=== PATIENT | female | born 1970 | race Caucasian/White ===

== ENCOUNTER 2019-04-27 15:00 | Outpatient (CLI) | payer BC, SELFPAY ==
--- NOTE | 2019-04-27 15:10 | USCV_ITS ---
Marilyn Nayak Age: 48 Gender: F : 1970 Exam Date: 04/27/2019 15:48 Ordering Phys: Peg Mcfadden MD Technologist: Donna Lindquist [place] [facility] [place]: CHEST PAIN BP: / HR: 71 Rhythm: Sinus Technical Quality: TDS MEASUREMENTS (Male / Female) Normal Values 2D ECHO LV Diastolic Diameter PLAX 4.0 cm 4.2 - 5.9 / 3.9 - 5.3 cm LV Systolic Diameter PLAX 2.9 cm LV Chamber Size 3.9 cm IVS Diastolic Thickness 1.1 cm 0.6 - 1.0 / 0.6 - 0.9 cm IVS Systolic Thickness 1.4 cm LVPW Diastolic Thickness 1.2 cm 0.6 - 1.0 / 0.6 - 0.9 cm LVPW Systolic Thickness 1.4 cm RV Chamber Size 2.6 cm LVOT Diameter 2.0 cm LV Ejection Fraction 2D Teich 55.8 % LV Ejection Fraction MOD 2C 44.7 % LV Ejection Fraction 2C AL 45.8 % LA Diameter 2.4 cm LA Width 2.3 cm LA Height 2.8 cm RA Width 2.8 cm RA Height 3.3 cm Aorta at Sinotubular Diameter 3.3 cm M-MODE LV Diastolic Diameter MM 4.4 cm 4.2 - 5.9 / 3.9 - 5.3 cm LV Systolic Diameter MM 3.5 cm LV Ejection Fraction MM Teich 43.9 % IVS Diastolic Thickness MM 0.8 cm 0.6 - 1.0 / 0.6 - 0.9 cm IVS Systolic Thickness MM 1.1 cm LVPW Diastolic Thickness MM 1.0 cm 0.6 - 1.0 / 0.6 - 0.9 cm LVPW Systolic Thickness MM 1.3 cm RV Diastolic Diameter MM 2.0 cm Aortic Annulus Diameter 3.5 cm LA Ao Ratio MM 0.7 MV E Point Septal Separation 0.5 cm DOPPLER AV Peak Velocity 116.0 cm/s LVOT Peak Velocity 90.0 cm/s AV Area Cont Eq vti 2.5 cm squared AV Area Cont Eq pk 2.4 cm squared MV Area PHT 3.7 cm squared Mitral E to A Ratio 0.9 MV E' Velocity 8.0 cm/s Mitral E to MV E' Ratio 8.9 Mitral E to LV E' Lateral Ratio 9.5 Mitral E to LV E' Septal Ratio 8.4 TR Peak Velocity 215.0 cm/s TR Peak Gradient 18.5 mmHg TR Mean Velocity 163.8 cm/s TR Mean Gradient 11.6 mmHg TR Velocity Time Integral 59.4 cm TV Peak E Velocity 59.0 cm/s PV Peak Velocity 51.0 cm/s RV Acceleration Time 0.1 s RV Ejection Time 0.2 s RV AcT/ET 0.4 FINDINGS Left Ventricle Normal left ventricular size and systolic function, EF 55 %. No regional wall motion abnormalities. Right Ventricle The right ventricle is normal in size and function. Right Atrium The right atrium is normal in size. Left Atrium The left atrium is normal in size. Mitral Valve No gross abnormalities noted Aortic Valve Appears to be tricuspid with no gross abnormalities Tricuspid Valve Trace to mild tricuspid valve regurgitation. Pulmonic Valve No gross abnormalities noted Pericardium Normal pericardium without effusion. Aorta Normal ascending aorta dimension. CONCLUSIONS Normal left ventricular size and systolic function, EF 55 %. No regional wall motion abnormalities. Normal chamber sizes. Trace to mild tricuspid valve regurgitation. Normal pulmonary artery pressure There is no pericardial effusion. There are no intracardiac masses. No previous study is available for comparison. Dr Anshul Preston MD FACC (Electronically Signed) Final Date: 28 April 2019 16:18 S
== END 2019-04-27 15:01 | disposition home or self-care (01) ==
LOC: RAD 15:06
PROVIDERS: Family Provider Family Medicine; PCP Family Medicine; Visit Provider Family Medicine
DX: R07.9 Chest pain, unspecified (principal); Z86.79 Personal history of other diseases of the circulatory system
CPT/HCPCS: 93306

== ENCOUNTER 2021-10-07 07:41 | Outpatient (CLI) | payer BC, SELFPAY ==
--- NOTE | 2021-10-07 07:58 | MR_ITS ---
WS: [id number] MRI CERVICAL SPINE NONCONTRAST HISTORY: CERVICALGIA, LEFT arm pain. COMPARISON: None available. Technique: Multiplanar, multisequence noncontrast imaging of the cervical spine. Very slight reversal of upper cervical lordosis. No fractures or marrow edema. Signal within the cervical cord is normal. Visualized posterior fossa is unremarkable. Craniocervical junction, C1 and C2 relationship, odontoid process and soft tissues are normal. C2-C3: Tiny central disc protrusion with no stenosis. C3-C4: Normal. C4-C5: Normal. C5-C6: Small central disc protrusion. RIGHT foraminal osteophyte causing a mild RIGHT foraminal steno sis. C6-C7: Central disc protrusion with mild bilateral facet joint arthritis. Very tiny foraminal osteoph ytes. C7-T1: Normal. Nerve root sleeve diverticulum LEFT at T1-2. Paraspinal soft tissue are normal. MR/MR cervical spin wo con* [id number] IMPRESSION: 1. No high-grade central stenosis or foraminal stenosis. 2. Small central disc protrusion at C5-6 and RIGHT foraminal osteophyte causin g only mild stenosis. 3. Small foraminal osteophytes at C6-7. 4. Tiny central disc protrusion at C2-3
== END 2021-10-07 07:42 | disposition home or self-care (01) ==
PROVIDERS: PCP Family Medicine; Visit Provider Family Medicine
DX: M54.2 Cervicalgia (principal); M50.222 Other cervical disc displacement at C5-C6 level; M48.02 Spinal stenosis, cervical region
CPT/HCPCS: 72141

== ENCOUNTER 2022-04-14 07:25 | Day surgery (SDC) | payer BC, SELFPAY ==
[2022-04-08 08:53] VITALS: BMI 23.9
[2022-04-14 07:44] VITALS: BP 147/84; PULSE 68; RESP 18; TEMP 36.7; O2SAT 99
[2022-04-14] MEDS: sodium chloride 0.9% 1,000 ML 30 ML IV (07:50)
--- NOTE | 2022-04-14 08:24 | ANES.PREANE2 ---
Pre-Anesthetic Assessment Height/Weight: Height 1.6 m Weight 61.235 kg Temp Pulse Resp BP Pulse Ox O2 Del Method 98.0 F 68 18 147/84 99 04/14/22 07:44 04/14/22 07:44 04/14/22 07:44 04/14/22 07:44 04/14/22 07:44 04/14/22 07:44 Operation Date: 04/14/22 09:00 Proposed Procedures p EGD [id number],K21.9(Not Applicable) - Roger Arana DO Familial anesthetic complications: None Was Beta Angelo taken within 24 hours: Yes Was Clonidine taken within 24 hours: N/A Last intake: Intake Last Liquid Date 04/13/22 Last Liquid Time 18:00 Last Solid Date 04/13/22 Last Solid Time 18:00 Social No alcohol and No tobacco Exam alert, oriented x 3, clear to auscultation bilaterally and regular rate & rhythm Airway Mallampati: Class II Dentition: full Pulmonary Asthma 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 Chest pain brought on sporadically by exertion and anxiety. Relieved by rest and/or nitro. Takes metoprolol to lower HR. Will avoid tachycardia and keep normotensive GI Gastroesophageal Reflux Disease Anesthetic Plan ASA status: 3 Anesthesia: MAC Risk of > 500 ml blood loss (7ml/kg in children): No Medications/Allergies Home Medications Medication Instructions Recorded Confirmed Last Taken Type aspirin 81 mg tablet,delayed 81 mg PO DAILY 03/08/22 04/14/22 04/13/22 History release (Adult Aspirin Regimen) atorvastatin 20 mg tablet 20 mg PO DAILY 03/08/22 04/14/22 04/13/22 History metoprolol succinate 50 mg 50 mg PO DAILY 03/08/22 04/14/22 04/13/22 History tablet,extended release 24 hr (Toprol XL) nitroglycerin 0.4 mg sublingual 0.4 mg sublingual Q5M PRN Chest 03/08/22 04/14/22 Unknown History tablet Pain pantoprazole 40 mg tablet,delayed 40 mg PO BID 03/08/22 04/14/22 04/13/22 History release paroxetine HCl 10 mg tablet (Paxil) 10 mg PO DAILY 03/08/22 04/14/22 04/13/22 History ranolazine 500 mg tablet,extended 500 mg PO BID 03/08/22 04/14/22 04/13/22 History release,12 hr rizatriptan 5 mg tablet 5 mg PO Q2H PRN Migraine Headache 03/08/22 04/14/22 04/13/22 History Allergies Allergy/AdvReac Type Severity Reaction Status Date / Time ibuprofen Allergy ALGY-Difficulty Verified 04/14/22 07:40 Breathing Penicillins Allergy ALGY-Anaphy Verified 04/14/22 07:40 laxis Current Medications Generic Name Dose Route Start Last Admin Trade Name Freq PRN Reason Stop Dose Admin Sodium Chloride 1,000 mls @ 30 mls/hr 04/14/22 07:45 04/14/22 07:50 Sodium Chloride 0.9% IV 04/15/22 07:44 30 mls/hr .Q24H MCKENNA Administration PFSH Anesthesia Medical History Asthma Gastroesophageal reflux disease History of right bundle branch block Myocardial bridge Surgical History History of appendectomy History of breast augmentation History of History of colposcopy with cervical biopsy History of coronary artery bypass graft History of tubal ligation Social History Smoking and tobacco status: former smoker Alcohol intake: current Alcohol intake frequency: few times a month Data Anesthesia Cardiac Studies: Echocardiogram Ultrasound 04/27/19
--- NOTE | 2022-04-14 08:53 | P.HP_ITS ---
Providers/Chief Complaint Primary Care Provider: Peg Mcfadden MD Chief Complaint: K21.9 History of Present Illness Marilyn Nayak is a 51 year old female here for EGD Medications/Allergies Home Medications Medication Instructions Recorded Confirmed Last Taken Type aspirin 81 mg tablet,delayed 81 mg PO DAILY 03/08/22 04/14/22 04/13/22 History release (Adult Aspirin Regimen) atorvastatin 20 mg tablet 20 mg PO DAILY 03/08/22 04/14/22 04/13/22 History metoprolol succinate 50 mg 50 mg PO DAILY 03/08/22 04/14/22 04/13/22 History tablet,extended release 24 hr (Toprol XL) nitroglycerin 0.4 mg sublingual 0.4 mg sublingual Q5M PRN Chest 03/08/22 04/14/22 Unknown History tablet Pain pantoprazole 40 mg tablet,delayed 40 mg PO BID 03/08/22 04/14/22 04/13/22 History release paroxetine HCl 10 mg tablet (Paxil) 10 mg PO DAILY 03/08/22 04/14/22 04/13/22 History ranolazine 500 mg tablet,extended 500 mg PO BID 03/08/22 04/14/22 04/13/22 History release,12 hr rizatriptan 5 mg tablet 5 mg PO Q2H PRN Migraine Headache 03/08/22 04/14/22 04/13/22 History Allergies Allergy/AdvReac Type Severity Reaction Status Date / Time ibuprofen Allergy ALGY-Difficulty Verified 04/14/22 07:40 Breathing Penicillins Allergy ALGY-Anaphy Verified 04/14/22 07:40 laxis PFSH Acute PFSH: Medical History (Updated 04/14/22 @ 08:53 by Roger Arana DO) Asthma Gastroesophageal reflux disease History of right bundle branch block Myocardial bridge Surgical History History of appendectomy History of breast augmentation History of History of colposcopy with cervical biopsy History of coronary artery bypass graft History of tubal ligation Social History Smoking and tobacco status: former smoker Alcohol intake: current Alcohol intake frequency: few times a month Vitals/I&O/Wt Last Vital Signs Temp 98.0 F 04/14/22 07:44 Pulse 68 04/14/22 07:44 Resp 18 04/14/22 07:44 BP 147/84 04/14/22 07:44 Pulse Ox 99 04/14/22 07:44 O2 Del Method 04/14/22 07:44 A&P Assessment and plan (1) Gastroesophageal reflux disease: Plan EGD Attestations Medical Necessity Statement*: Home Coding Level of Care Code Acute Veterinary Bacteriologist for Chg Fwd Diagnoses Gastroesophageal reflux disease K21.9
[2022-04-14 09:36] VITALS: BP 96/63; PULSE 75; RESP 16; TEMP 36.6; O2SAT 97
[2022-04-14 09:52] VITALS: BP 114/73; PULSE 72; RESP 16; O2SAT 98
--- NOTE | 2022-04-14 12:06 | ANE.PACU2 ---
Inpatient post-anesthesia follow up: Airway intact: Yes Vital signs: Temperature 98 F Pulse Rate 72 Respiratory Rate 16 Blood Pressure 114/73 Pulse Oximetry 98 Oxygen Delivery Me thod Room Air Oxygen Flow Rate 4 Fraction of Inspir ed Oxygen Hydration adequate: Yes Nausea and vomiting: No Pain level: 1 Mental status: Baseline
== END 2022-04-14 10:10 | disposition home or self-care (01) ==
PROVIDERS: PCP Family Medicine; Visit Provider Surgery
PROC: 0DJ08ZZ Inspection of Upper Intestinal Tract, Via Natural or Artificial Opening Endoscopic (ICD-10-PCS; CPT 43235; principal; 2022-04-14 09:00)
DX: K21.9 Gastro-esophageal reflux disease without esophagitis (principal); K29.50 Unspecified chronic gastritis without bleeding; B96.81 Helicobacter pylori [H. pylori] as the cause of diseases classified elsewhere; Z79.82 Long term (current) use of aspirin; J45.909 Unspecified asthma, uncomplicated; Z87.891 Personal history of nicotine dependence
CPT/HCPCS: 43239; 88305; J2704; J7030

== ENCOUNTER 2023-09-07 07:43 | Outpatient (CLI) | payer BC, SELFPAY ==
--- NOTE | 2023-09-07 07:52 | US_ITS ---
WS: [id number] RIGHT UPPER QUADRANT ULTRASOUND HISTORY: GASTRO-ESOPHAGEAL REFLUX DZ WO ESOPHAGITIS COMPARISON: None available. Liver: 14.0 cm in length. Normal size liver and echogenicity. No bile duct dilatation or mass. Portal Vein: Normal hepatopetal flow with monophasic waveform. Gallbladder: Normally distended gallbladder. There is a nonshadowing focus in the gallbladder measuri ng 4 x 4 x 3 mm consistent with a polyp. No wall thickening. No stones. CBD: 0.4 cm Pancreas: Completely obscured. Right kidney: 9.5 cm in length. Normal size and echogenicity. No hydronephrosis or mass. Aorta and IVC: Unremarkable abdominal aorta and IVC. No ascites. US/US abdomen limited [id number] IMPRESSION: 1. 4 mm gallbladder polyp. No cholelithiasis. 2. Nonvisualization of the pancreas. 3. Negative liver.
--- NOTE | 2023-09-07 07:52 | MM_ITS ---
WS: [id number] BILATERAL SCREENING DIGITAL BREAST MAMMOGRAPHY WITH EBER DISPLACEMENT VIEWS. CAD PERFORMED. HISTORY: SCREENING COMPARISON: 08/20/2014 Bilateral craniocaudal and mediolateral oblique views are performed with tomosynthesis and SM. Eber displacement views in CC and MLO projection also performed. Breasts composition: There are scattered areas of fibroglandular density. Implants are intact. Implants are new since 08/20/2014. There are a few small well-circumscribed nodule s in the upper outer quadrant of the LEFT breast which are probably lymph nodes. No suspicious masses or distortion. MM/[place] [id number] IMPRESSION: BI-RADS: 2-Benign FOLLOW-UP: 1 Year Follow-up
== END 2023-09-07 07:44 | disposition home or self-care (01) ==
LOC: RAD 07:44
PROVIDERS: PCP Family Medicine; Visit Provider Family Medicine
DX: K21.9 Gastro-esophageal reflux disease without esophagitis (principal); K82.4 Cholesterolosis of gallbladder; Z12.31 Encounter for screening mammogram for malignant neoplasm of breast; R92.323 Mammographic fibroglandular density, bilateral breasts; N63.21 Unspecified lump in the left breast, upper outer quadrant
CPT/HCPCS: 76705; 77063; 77067

== ENCOUNTER 2024-01-18 11:05 | Day surgery (SDC) | payer BC, SELFPAY ==
[2024-01-18 11:30] VITALS: BP 97/66; PULSE 68; RESP 18; TEMP 36.6; O2SAT 94; BMI 25.7
[2024-01-18] MEDS: sodium chloride 0.9% 1,000 ML 30 ML IV ×2 (11:42→14:15)
--- NOTE | 2024-01-18 14:10 | PM.HP ---
Providers/Chief Complaint Primary Care Provider: Peg Mcfadden MD Chief Complaint: Z12.11 History of Present Illness Marilyn Nayak is a 53 year old female Review of Systems General: Reports: 10 or more systems reviewed and unremarkable except in HPI and below Medications/Allergies Home Medications Medication Instructions Recorded Confirmed Last Taken Type metoprolol succinate 50 mg 50 mg PO DAILY 03/08/22 01/18/24 01/17/24 History tablet,extended release 24 hr (Toprol XL) nitroglycerin 0.4 mg sublingual 0.4 mg sublingual Q5M PRN Chest 03/08/22 01/18/24 Unknown History tablet Pain pantoprazole 40 mg tablet,delayed 40 mg PO BID 03/08/22 01/18/24 01/17/24 History release acetaminophen 500 mg tablet 500 mg PO PER PKG DIR PRN Pain 06/27/23 01/18/24 01/14/24 History (Tylenol Extra Strength) amlodipine 5 mg tablet 5 mg PO DAILY 06/27/23 01/18/24 01/18/24 History beclomethasone dipropionate 40 40 mcg inhalation .2 puffs daily 06/27/23 01/18/24 Unknown History mcg/actuation aerosol inhaler calcium w Anna D 1 tab PO DAILY 06/27/23 01/18/24 Unknown History cetirizine 10 mg tablet (Zyrtec) 10 mg PO DAILY PRN Allergy Symptoms 06/27/23 01/18/24 01/17/24 History furosemide 20 mg tablet 20 mg PO DAILY PRN swelling 06/27/23 01/18/24 Unknown History lorazepam 0.25mg 0.25 mg PO DAILY PRN Anxiety 06/27/23 01/18/24 01/16/24 History sertraline 25 mg tablet 50 mg PO DAILY 06/27/23 01/18/24 01/17/24 History tizanidine 4 mg tablet 4 mg PO PRN PRN Muscle Spasm 06/27/23 01/18/24 Unknown History aspirin 81 mg capsule 81 mg PO DAILY 01/17/24 01/18/24 01/14/24 History atorvastatin 20 mg tablet 20 mg PO QPM 01/17/24 01/18/24 01/17/24 History Allergies Allergy/AdvReac Type Severity Reaction Status Date / Time ibuprofen Allergy ALGY-Difficulty Verified 01/18/24 11:25 Breathing Penicillins Allergy ALGY-Anaphy Verified 01/18/24 11:25 laxis PFSH Acute PFSH: Medical History Family history of colon cancer Helicobacter pylori gastritis Asthma Gastroesophageal reflux disease History of right bundle branch block Myocardial bridge Surgical History Hx of colonoscopy 2021 History of esophagogastroduodenoscopy (EGD) 2021 History of coronary artery bypass graft History of breast augmentation History of colposcopy with cervical biopsy History of tubal ligation History of appendectomy History of Family History Father Colon cancer stage 4 Social History Smoking and tobacco/nicotine status: former use of tobacco/nicotine Alcohol intake: current Alcohol intake frequency: few times a month Vitals/I&O/Wt Last Vital Signs Temp 97.9 F 01/18/24 11:30 Pulse 68 01/18/24 11:30 Resp 18 01/18/24 11:30 BP 97/66 01/18/24 11:30 Pulse Ox 94 01/18/24 11:30 O2 Del Method Room Air 01/18/24 11:30 Weight last 48 hrs Weight 145 lb A&P Assessment and plan (1) Family history of colon cancer: Plan Colonoscopy Attestations Medical Necessity Statement*: Home Coding Level of Care Code Acute Code for Chg Fwd Diagnoses Family history of colon cancer Z80.0
[2024-01-18 14:34] VITALS: BP 93/55; PULSE 68; RESP 18; TEMP 36.3; O2SAT 96
[2024-01-18 14:44] VITALS: BP 95/55; PULSE 59; RESP 18; O2SAT 98
--- NOTE | 2024-01-18 14:57 | ANE.PACU2 ---
Inpatient post-anesthesia follow up: Airway intact: Yes Vital signs: Temperature 97.3 F Pulse Rate 59 Respiratory Rate 18 Blood Pressure 95/55 Pulse Oximetry 98 Oxygen Delivery Me thod Room Air Oxygen Flow Rate Fraction of Inspir ed Oxygen Hydration adequate: Yes Nausea and vomiting: No Pain level: 1 Mental status: Baseline
== END 2024-01-18 14:57 | disposition home or self-care (01) ==
PROVIDERS: PCP Family Medicine; Visit Provider Surgery
PROC: 0DJD8ZZ Inspection of Lower Intestinal Tract, Via Natural or Artificial Opening Endoscopic (ICD-10-PCS; CPT 45378; principal; 2024-01-18 12:30)
DX: Z12.11 Encounter for screening for malignant neoplasm of colon (principal); Z80.0 Family history of malignant neoplasm of digestive organs; J45.909 Unspecified asthma, uncomplicated; K21.9 Gastro-esophageal reflux disease without esophagitis; Z87.891 Personal history of nicotine dependence
CPT/HCPCS: 45378; J2704; J7030